=== PATIENT | male | born 1955 ===

== ENCOUNTER 2021-03-10 10:30 | Inpatient (IN) | payer OTHER ==
[~2021-03-10] VITALS: Ht 188 cm; Wt 103.4 kg
[2021-03-10] MEDS ORDERED: VITAMIN D3 PO (14:02)
[2021-03-10] MEDS ORDERED: HORIZANT600 MG PO (14:02)
[2021-03-13] MEDS ORDERED: GABAPENTIN600 MG (10:21)
[2021-03-13] MEDS ORDERED: LOSARTAN POTASS25 MG (10:22)
[2021-03-13] MEDS ORDERED: B-121000 MC1 (10:22)
[2021-03-13] MEDS ORDERED: VITAMIN D350 MCG (10:22)
[2021-03-13] MEDS ORDERED: FAMOTIDINE40 MG (10:22)
[2021-03-13] MEDS ORDERED: OPTIVE EYE DROP15 ML (10:22)
[2021-03-16] MEDS ORDERED: ULTRAM50 MG PO (06:55)
[2021-03-16] MEDS ORDERED: MIRALAX17 GM PO (06:55)
[2021-03-16] MEDS ORDERED: TYLENOL ARTHRI650 MG PO (06:55)
[2021-03-16] MEDS ORDERED: NEURONTIN600 M1 PO (06:55)
== END 2021-03-17 13:29 | disposition home or self-care (01) | DRG 337 ==
LOC: O/R 03-13 06:44 → SURH 03-13 10:30
PROVIDERS: ADMIT Surgery; ATTEND Surgery
PROC: 0DN80ZZ Release Small Intestine, Open Approach (ICD-10-PCS; 2021-03-13)
PROC: 0DNE0ZZ Release Large Intestine, Open Approach (ICD-10-PCS; 2021-03-13)
PROC: 0WUF0JZ Supplement Abdominal Wall with Synthetic Substitute, Open Approach (ICD-10-PCS; principal; 2021-03-13 15:00)
PROC: 02HV33Z Insertion of Infusion Device into Superior Vena Cava, Percutaneous Approach (ICD-10-PCS; 2021-03-15)
DX: K43.0 Incisional hernia with obstruction, without gangrene (principal); K42.0 Umbilical hernia with obstruction, without gangrene; K66.0 Peritoneal adhesions (postprocedural) (postinfection); K21.9 Gastro-esophageal reflux disease without esophagitis; R53.1 Weakness